=== PATIENT | female | born 1940 | race Caucasian/White ===

== ENCOUNTER 2022-08-03 17:19 | Emergency (ER) | payer BC, MEDICARE ==
[2022-08-03] MEDS ORDERED: Diphtheria,Pertussis(Acell),Tetanus Vaccine 0.5 ML Syringe IM ONE (19:30)
[2022-08-03] MEDS ORDERED: Lidocaine 1% with EPINEPHrine 1:100,000 50 ML MDV INFILT ONE (20:03)
[2022-08-03] MEDS ORDERED: Bacitracin Oint 1 GM U/D Packet TOP ONE (20:03)
== END 2022-08-03 21:00 | disposition home or self-care (01) ==
LOC: JP.ED 17:19
DX: S01.01XA Laceration without foreign body of scalp, initial encounter (principal); Z23 Encounter for immunization; W01.198A Fall on same level from slipping, tripping and stumbling with subsequent striking against other object, initial encounter
CPT/HCPCS: 12002; 90471; 90715; 99283-25